=== PATIENT | male | born 1940 | race Two or more races ===

== ENCOUNTER 2018-05-09 14:13 | Inpatient (IN) | payer MEDICARE, BC ==
[2018-05-09] MEDS ORDERED: SODIUM CHLORIDE 0.9% 500 ML IV STA (14:43)
[2018-05-09 14:57] LABS: Basophils # (A) 0.1 k/uL (0-0.2); Basophils % (A) 1 %; Eosinophils # (A) 0.2 k/uL (0-0.7); Eosinophils % (A) 3 %; HCT 43.8 % (39.0-53.0); HGB 14.1 gm/dL (13.0-17.5); Lymphocytes # (A) 1.9 k/uL (1.0-4.8); Lymphocytes % (A) 26 %; MCH 30.9 pg (25.0-35.0); MCHC 32.1 g/dL (31.0-37.0); MCV 96.2 fL (80.0-100.0); Mean Platelet Volume 8.2; Monocytes # (A) 0.5 k/uL (0-1.0); Monocytes % (A) 7 %; Neutrophils # (A) 4.7 k/uL (1.3-7.7); Neutrophils % (A) 62 %; Platelet Count 161 k/uL (150-450); RBC 4.55 m/uL (4.30-5.90); RDW 13.3 % (11.5-15.5); WBC 7.5 k/uL (3.8-10.6)
--- NOTE | 2018-05-09 14:58 | ED ---
General Adult HPI - General Chief complaint: GI Bleed Stated complaint: blood in stool Time Seen by Provider: 05/09/18 14:15 Source: patient, RN notes reviewed Mode of arrival: ambulatory Limitations: no limitations - History of Present Illness Initial comments: This is a 77 her old male who comes into the emergency department complaining that he has had bright red blood per rectum as well as some dark black stools. Patient states she's had 3 bowel movements 2 of which had bright red blood one of which had dark black stool. Patient states he has not had this in the past. Patient states he is on Plavix. Patient denies any abdominal pain. Patient denies any recent diarrhea. Patient denies any difficulty breathing shortness of breath or chest pain. Patient denies any lightheadedness or dizziness. - Related Data Home Medications Medication Instructions Recorded Confirmed Calcium/Magnesium 1 tab PO DAILY 05/09/18 05/09/18 Clopidogrel [Plavix] 75 mg PO DAILY 05/09/18 05/09/18 Enzalutamide [Xtandi] 120 mg PO DIRECTED MDD on hold 05/09/18 05/09/18 Furosemide [Lasix] 20 mg PO BID 05/09/18 05/09/18 Ibuprofen [Motrin Ib] 400 mg PO BID 05/09/18 05/09/18 Potassium 99 mg PO DAILY 05/09/18 05/09/18 Turmeric Root Extract [Turmeric] 500 mg PO DAILY 05/09/18 05/09/18 metFORMIN HCL [Glucophage] 1,000 mg PO BID 05/09/18 05/09/18 Allergies Allergy/AdvReac Type Severity Reaction Status Date / Time Iodinated Contrast- Oral and Allergy Rash/Hives Verified 05/09/18 15:05 IV Dye Review of Systems ROS Statement: Those systems with pertinent positive or pertinent negative responses have been documented in the HPI. ROS Other: All systems not noted in ROS Statement are negative. Past Medical History Past Medical History: Cancer, Chest Pain / Angina, Diabetes Mellitus, Prostate Disorder Additional Past Medical History / Comment(s): open heart surgery, valve repair surgery, prostate cancer History of Any Multi-Drug Resistant Organisms: None Reported Past Surgical History: Adenoidectomy, Appendectomy, Coronary Bypass/CABG, Tonsillectomy Additional Past Surgical History / Comment(s): aortic valve repair surgery Past Psychological History: No Psychological Hx Reported Smoking Status: Former smoker Past Alcohol Use History: None Reported Past Drug Use History: None Reported General Exam - General Exam Comments Initial Comments: GENERAL: Patient is well-developed and well-nourished. Patient is nontoxic and well- hydrated and is in no acute distress. ENT: Neck is soft and supple. No significant lymphadenopathy is noted. Oropharynx is clear. Moist mucous membranes. Neck has full range of motion without eliciting any pain. EYES: The sclera were anicteric and conjunctiva were pink and moist. Extraocular movements were intact and pupils were equal round and reactive to light. Eyelids were unremarkable. PULMONARY: Unlabored respirations. Good breath sounds bilaterally. No audible rales rhonchi or wheezing was noted. CARDIOVASCULAR: There is a regular rate and rhythm without any murmurs gallops or rubs. ABDOMEN: Soft and nontender with normal bowel sounds. No palpable organomegaly was noted. There is no palpable pulsatile mass. RECTAL Rectal exam showed no obvious site of bleeding. SKIN: Skin is clear with no lesions or rashes and otherwise unremarkable. NEUROLOGIC: Patient is alert and oriented x3. Cranial nerves II through XII are grossly intact. Motor and sensory are also intact. Normal speech, volume and content. Symmetrical smile. MUSCULOSKELETAL: Normal extremities with adequate strength and full range of motion. No lower extremity swelling or edema. No calf tenderness. LYMPHATICS: No significant lymphadenopathy is noted PSYCHIATRIC: Normal psychiatric evaluation. Normal interpersonal interactions appears functionally intact in deals appropriately with others. No signs of depression. No signs of anxiety. Limitations: no limitations Course Vital Signs 05/09/18 05/09/18 14:22 15:16 Temperature 97.8 F Pulse Rate 75 72 Respiratory 18 18 Rate Blood Pressure 135/70 127/60 O2 Sat by Pulse 95 96 Oximetry Medical Decision Making - Medical Decision Making EKG shows sinus rhythm with occasional PAC at 70 bpm IA interval is 154 QRS is 88 QT interval 352 QTC is 411. Patient's EKG shows some inverted T waves in the precordial leads V3 through V6 as well as inferior leads. No old EKG is available at this time. Patient is not having any chest pain or difficulty breathing I spoke with Dr. Martinez he agreed to admit the patient admitted the patient I wrote admitting orders. I consult to GI. I did CBCs every 6 hours. - Lab Data Result diagrams: 05/09/18 14:36 05/09/18 14:36 Lab Results 05/09/18 05/09/18 05/09/18 Range/Units 14:36 14:36 14:36 WBC 7.5 (3.8-10.6) k/uL RBC 4.55 (4.30-5.90) m/uL Hgb 14.1 (13.0-17.5) gm/dL Hct 43.8 (39.0-53.0) % MCV 96.2 (80.0-100.0) fL MCH 30.9 (25.0-35.0) pg MCHC 32.1 (31.0-37.0) g/dL RDW 13.3 (11.5-15.5) % Plt Count 161 (150-450) k/uL Neutrophils % 62 % Lymphocytes % 26 % Monocytes % 7 % Eosinophils % 3 % Basophils % 1 % Neutrophils # 4.7 (1.3-7.7) k/uL Lymphocytes # 1.9 (1.0-4.8) k/uL Monocytes # 0.5 (0-1.0) k/uL Eosinophils # 0.2 (0-0.7) k/uL Basophils # 0.1 (0-0.2) k/uL PT (9.0-12.0) sec INR (<1.2) APTT (22.0-30.0) sec Sodium 140 (137-145) mmol/L Potassium 4.3 (3.5-5.1) mmol/L Chloride 100 (98-107) mmol/L Carbon Dioxide 30 (22-30) mmol/L Anion Gap 10 mmol/L BUN 21 H (9-20) mg/dL Creatinine 0.66 (0.66-1.25) mg/dL Est GFR (CKD-EPI)AfAm >90 (>60 ml/min/1.73 sqM) Est GFR (CKD-EPI)NonAf >90 (>60 ml/min/1.73 sqM) Glucose 177 H (74-99) mg/dL Calcium 9.5 (8.4-10.2) mg/dL Magnesium 1.6 (1.6-2.3) mg/dL Total Bilirubin 0.6 (0.2-1.3) mg/dL AST 19 (17-59) U/L ALT 23 (21-72) U/L Alkaline Phosphatase 64 (38-126) U/L Total Creatine Kinase 32 L (55-170) U/L CK-MB (CK-2) 1.6 (0.0-2.4) ng/mL CK-MB (CK-2) Rel Index 5.0 Troponin I 0.013 (0.000-0.034) ng/mL Total Protein 6.9 (6.3-8.2) g/dL Albumin 3.9 (3.5-5.0) g/dL 05/09/18 Range/Units 14:36 WBC (3.8-10.6) k/uL RBC (4.30-5.90) m/uL Hgb (13.0-17.5) gm/dL Hct (39.0-53.0) % MCV (80.0-100.0) fL MCH (25.0-35.0) pg MCHC (31.0-37.0) g/dL RDW (11.5-15.5) % Plt Count (150-450) k/uL Neutrophils % % Lymphocytes % % Monocytes % % Eosinophils % % Basophils % % Neutrophils # (1.3-7.7) k/uL Lymphocytes # (1.0-4.8) k/uL Monocytes # (0-1.0) k/uL Eosinophils # (0-0.7) k/uL Basophils # (0-0.2) k/uL PT 10.3 (9.0-12.0) sec INR 1.1 (<1.2) APTT 23.4 (22.0-30.0) sec Sodium (137-145) mmol/L Potassium (3.5-5.1) mmol/L Chloride (98-107) mmol/L Carbon Dioxide (22-30) mmol/L Anion Gap mmol/L BUN (9-20) mg/dL Creatinine (0.66-1.25) mg/dL Est GFR (CKD-EPI)AfAm (>60 ml/min/1.73 sqM) Est GFR (CKD-EPI)NonAf (>60 ml/min/1.73 sqM) Glucose (74-99) mg/dL Calcium (8.4-10.2) mg/dL Magnesium (1.6-2.3) mg/dL Total Bilirubin (0.2-1.3) mg/dL AST (17-59) U/L ALT (21-72) U/L Alkaline Phosphatase (38-126) U/L Total Creatine Kinase (55-170) U/L CK-MB (CK-2) (0.0-2.4) ng/mL CK-MB (CK-2) Rel Index Troponin I (0.000-0.034) ng/mL Total Protein (6.3-8.2) g/dL Albumin (3.5-5.0) g/dL Disposition Clinical Impression: Gastrointestinal hemorrhage Disposition: ADMITTED IP TO THIS HOSP Referrals: Kirk Gold MD [Primary Care Provider] - 1-2 days Time of Disposition: 15:45
[2018-05-09 15:11] LABS: INR 1.1 (<1.2); Partial Thromboplastin Time 23.4 sec (22.0-30.0); Prothrombin Time 10.3 sec (9.0-12.0)
[2018-05-09 15:13] LABS: ALT 23 U/L (21-72); AST 19 U/L (17-59); Albumin 3.9 g/dL (3.5-5.0); Alkaline Phosphatase 64 U/L (38-126); Anion Gap 10 mmol/L; Blood Urea Nitrogen 21 mg/dL (9-20); Calcium 9.5 mg/dL (8.4-10.2); Carbon Dioxide 30 mmol/L (22-30); Chloride 100 mmol/L (98-107); Glucose 177 mg/dL (74-99); Magnesium 1.6 mg/dL (1.6-2.3); Potassium 4.3 mmol/L (3.5-5.1); Sodium 140 mmol/L (137-145); Total Bilirubin 0.6 mg/dL (0.2-1.3); Total Protein 6.9 g/dL (6.3-8.2)
[2018-05-09 15:27] LABS: Creatine Kinase MB 1.6 ng/mL (0.0-2.4); Troponin I 0.013 ng/mL (0.000-0.034)
[2018-05-09] MEDS ORDERED: SODIUM CHLORIDE 0.9% 1,000 ML IV ONE (15:45)
[2018-05-09 17:01] VITALS: BMI 35.2
[2018-05-09 17:11] LABS: Glucose,Whole Blood 134 mg/dL (75-99)
[2018-05-09] MEDS: INSULIN ASPART 100 UNIT/ML 1 ML 10 ML VIAL SQ SCH ×2 (18:04→21:04)
[2018-05-09] MEDS: PANTOPRAZOLE 40 MG/10 ML VIAL IVP SCH (18:52)
[2018-05-09 20:55] LABS: Glucose,Whole Blood 109 mg/dL (75-99)
[2018-05-09] MEDS ORDERED: INSULIN DETEMIR 100 UNIT/ML 10 ML VIAL SQ SCH (21:00)
[2018-05-09 22:41] LABS: Basophils % (A) 1 %; Eosinophils # (A) 0.1 k/uL (0-0.7); Eosinophils % (A) 2 %; HCT 39.2 % (39.0-53.0); HGB 12.1 gm/dL (13.0-17.5); Hypochromasia Slight; Lymphocytes # (A) 1.5 k/uL (1.0-4.8); Lymphocytes % (A) 25 %; MCH 30.1 pg (25.0-35.0); MCHC 30.9 g/dL (31.0-37.0); MCV 97.3 fL (80.0-100.0); Mean Platelet Volume 8.1; Monocytes # (A) 0.5 k/uL (0-1.0); Monocytes % (A) 8 %; Neutrophils # (A) 3.6 k/uL (1.3-7.7); Neutrophils % (A) 62 %; Platelet Count 139 k/uL (150-450); RBC 4.03 m/uL (4.30-5.90); RDW 13.3 % (11.5-15.5); WBC 5.8 k/uL (3.8-10.6)
[2018-05-09] MEDS ORDERED: ALPRAZolam 0.25 MG TAB PO PRN (22:46)
[2018-05-09] MEDS ORDERED: HYDROcodone/APAP 5-325MG 1 EACH TAB PO PRN (22:46)
--- NOTE | 2018-05-09 23:29 | XR ---
EXAMINATION TYPE: XR chest 1V portable DATE OF EXAM: 05/09/2018 COMPARISON: NONE HISTORY: Chest pain. Short of breath. TECHNIQUE: Single frontal view of the chest is obtained. FINDINGS: There is slight coarsening of interstitial markings at the lung bases. There is no heart f ailure. There are sternal wires. Thoracic aorta is atheromatous. IMPRESSION: Mild basilar pulmonary infiltrates and atelectasis. No gross heart failure.
--- NOTE | 2018-05-09 23:42 | HP ---
HISTORY AND PHYSICAL CHIEF COMPLAINT: GI bleed. HISTORY OF PRESENT ILLNESS: This 77-year-old gentleman with a past medical history of chest pain, angina, diabetes, prostate disorder, history of CAD, CABG, history of rheumatic fever, being followed by Dr. Gold in [place], was complaining of GI bleed. Last night the patient woke up and saw fresh blood initially; subsequently black-colored stools in multiple bowel movements were noted. The patient came to [facility] and was admitted for further evaluation treatment. Abdominal There is no abdominal pain as such. The hemoglobin was found to be 14.1 and 12.1. Gastroenterology evaluation is in progress. There is no history of any fever, rigor or chills. No history of headache, loss of consciousness, seizures. PAST MEDICAL HISTORY: 1. History of chest pain. 2. History of diabetes mellitus. 3. History of prostate disorder. 4. History of CAD CABG. 5. History of aortic valve repair. MEDICATIONS PRIOR TO ADMISSION: These include: 1. Lantus 25 units subcutaneously b.i.d. 2. Glucophage 1000 mg b.i.d. 3. Turmeric 500 mg b.i.d. 4. Potassium 90 mg p.o. daily. 5. Motrin 400 mg p.o. b.i.d. 6. Lasix 20 mg b.i.d. 7. Xtandi 120 mg p.r.n. 8. Plavix 75 mg p.o. daily. 9. Calcium/magnesium 1 p.o. daily. ALLERGIES: IODINATED CONTRAST DYES. FAMILY HISTORY: History of CAD, diabetes mellitus in the family. SOCIAL HISTORY: Previous history of smoking. No history of alcohol intake. REVIEW OF SYSTEMS: ENT: No diminished hearing. No diminished vision. CARDIOVASCULAR SYSTEM: No angina, palpitations. Otherwise as mentioned earlier. RESPIRATORY SYSTEM: No cough, hemoptysis. GI: As mentioned earlier. : No dysuria or retention. NERVOUS SYSTEM: No numbness, weakness. ALLERGY/IMMUNOLOGY: No asthma, hayfever. MUSCULOSKELETAL: As mentioned earlier. HEMATOLOGY/ONCOLOGY: No history of anemia. ENDOCRINE: As mentioned earlier. CONSTITUTIONAL: As mentioned earlier. DERMATOLOGY: Negative. RHEUMATOLOGY: Negative. PSYCHIATRY: As mentioned earlier. PHYSICAL EXAMINATION: Patient is alert, oriented x3. Pulse is 69, blood pressure 117/55, respiration 18, temperature 97.9, pulse ox 98% on 2 L. HEENT: Conjunctivae normal. Oral mucosa moist. NECK: No jugular venous distention. No carotid bruit. No lymph node enlargement. CARDIOVASCULAR SYSTEM: S1, S2 muffled. RESPIRATORY SYSTEM: Breath sounds diminished at the bases. A few scattered rhonchi. No crackles. ABDOMEN: Soft, obese, nontender. No mass palpable. No guarding. No rigidity. LEGS: No edema. No swelling. NERVOUS SYSTEM: Higher functions as mentioned earlier. Moves all four limbs. No focal sensory or motor deficits LYMPHATICS: No lymph node palpable in neck, axillae or groin. SKIN: No ulcer, rash, bleeding. LABS: WBC 5.8, hemoglobin 12.1, glucose 109. ASSESSMENT: 1. Acute lower gastrointestinal bleeding with acute blood loss anemia. Rule out peptic ulcer disease. 2. History of coronary artery disease, coronary artery bypass grafting. 3. Diabetes mellitus, type 2. 4. History of aortic valve repair x2. 5. Remote history of nicotine dependence. 6. Obesity with body mass index of 35.3. RECOMMENDATIONS AND DISCUSSION: In this 77-year-old gentleman who presented with multiple complex medical issues , we will monitor the patient closely, continue the current medications, continue with symptomatic treatment. Otherwise at this time I recommend continuing with current medications. Continue with proton pump inhibitors. Hold antiplatelet agents. Gastroenterology consultation. Possible endoscopies. The prognosis is guarded because of the multiple complex medical issues. Further recommendations to follow. A copy of this dictation is being forwarded to Dr. Gold in [place]. See orders for further details. Discussed with staff. Discussed with the patient. Further recommendations to follow. Keep the patient n.p.o. currently. MMODL / IJN: [id number] / MARYJANE
[2018-05-10 00:32] LABS: Glucose,Whole Blood 115 mg/dL (75-99)
[2018-05-10 04:52] LABS: Basophils % (A) 1 %; Eosinophils # (A) 0.1 k/uL (0-0.7); Eosinophils % (A) 3 %; HCT 36.4 % (39.0-53.0); HGB 11.5 gm/dL (13.0-17.5); Hypochromasia Slight; Lymphocytes # (A) 1.3 k/uL (1.0-4.8); Lymphocytes % (A) 24 %; MCHC 31.7 g/dL (31.0-37.0); MCV 97.9 fL (80.0-100.0); Mean Platelet Volume 7.9; Monocytes # (A) 0.5 k/uL (0-1.0); Monocytes % (A) 8 %; Neutrophils # (A) 3.5 k/uL (1.3-7.7); Neutrophils % (A) 64 %; Platelet Count 139 k/uL (150-450); RBC 3.72 m/uL (4.30-5.90); RDW 13.2 % (11.5-15.5); WBC 5.5 k/uL (3.8-10.6)
[2018-05-10 05:06] LABS: Anion Gap 3 mmol/L; Blood Urea Nitrogen 21 mg/dL (9-20); Calcium 8.8 mg/dL (8.4-10.2); Carbon Dioxide 30 mmol/L (22-30); Chloride 104 mmol/L (98-107); Glucose 124 mg/dL (74-99); Magnesium 1.7 mg/dL (1.6-2.3); Potassium 3.8 mmol/L (3.5-5.1); Sodium 137 mmol/L (137-145)
[2018-05-10 05:10] LABS: INR 1.1 (<1.2); Partial Thromboplastin Time 23.1 sec (22.0-30.0); Prothrombin Time 10.4 sec (9.0-12.0)
[2018-05-10] MEDS ORDERED: Potassium Replacement Protocol 1 EACH MISC MISCELLANE PRN (05:39)
[2018-05-10] MEDS ORDERED: POTASSIUM CHLORIDE ER 20 MEQ TAB.ER PO SCH (06:00)
[2018-05-10] MEDS: MAGNESIUM SULFATE-D5W PMX 1 GM in DEXTROSE/WATER 1 100ML.BAG IVPB SCH ×2 (06:10→07:10)
[2018-05-10 07:25] LABS: Glucose,Whole Blood 156 mg/dL (75-99)
--- NOTE | 2018-05-10 07:50 | P.CRDCN ---
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 In 2016, he underwent transcutaneous aortic valve replacement "TAVR". Beside that the patient does have obstructive sleep apnea, he is obese, hypertension, dyslipidemia and he is diabetic as well. He was in his usual state of health till yesterday when he started experiencing blood in the stool. Initially it was bright red blood but subsequently he did have small bowel movement with black stool. In the hospital, he did have one more episode of blood in the stool as well. The initial hemoglobin when he presented to the hospital was 14.1 but the last hemoglobin dropped to 11.5. Clinically, the patient denies having any chest pain or chest discomfort, shortness of breath, dizziness or lightheadedness, feeling of heart racing or fluttering, or syncope. He denies having any abdominal discomfort, nausea or vomiting. The EKG showed sinus rhythm with nonspecific changes. There is also premature atrial contraction. The chest x-ray did not show any acute abnormalities. The patient was receiving Plavix and the Plavix is on hold at this point. I would agree with that since the patient did not have any recent percutaneous coronary intervention or stenting within the last 12 months. The patient is in process to be seen by the GI service. Past Medical History Past Medical History: Cancer, Chest Pain / Angina, Diabetes Mellitus, Prostate Disorder Additional Past Medical History / Comment(s): open heart surgery, valve repair surgery, prostate cancer, rheumatic fever History of Any Multi-Drug Resistant Organisms: None Reported Past Surgical History: Adenoidectomy, Appendectomy, Coronary Bypass/CABG, Tonsillectomy Additional Past Surgical History / Comment(s): aortic valve repair surgery x2 Past Anesthesia/Blood Transfusion Reactions: No Reported Reaction Past Psychological History: No Psychological Hx Reported Smoking Status: Former smoker Past Alcohol Use History: None Reported Past Drug Use History: None Reported - Past Family History Mother Family Medical History: Coronary Artery Disease (CAD), Diabetes Mellitus Medications and Allergies Home Medications Medication Instructions Recorded Confirmed Type Calcium/Magnesium 1 tab PO DAILY 05/09/18 05/09/18 History Clopidogrel [Plavix] 75 mg PO DAILY 05/09/18 05/09/18 History Enzalutamide [Xtandi] 120 mg PO DIRECTED MDD on hold 05/09/18 05/09/18 History Furosemide [Lasix] 20 mg PO BID 05/09/18 05/09/18 History Ibuprofen [Motrin Ib] 400 mg PO BID 05/09/18 05/09/18 History Insulin Glargine [Lantus] 25 unit SQ BID 05/09/18 05/09/18 History Potassium 99 mg PO DAILY 05/09/18 05/09/18 History Turmeric Root Extract [Turmeric] 500 mg PO DAILY 05/09/18 05/09/18 History metFORMIN HCL [Glucophage] 1,000 mg PO BID 05/09/18 05/09/18 History Allergies Allergy/AdvReac Type Severity Reaction Status Date / Time Iodinated Contrast- Oral and Allergy Rash/Hives Verified 05/09/18 15:05 IV Dye Physical Exam Vitals: Vital Signs Temp Pulse Pulse Resp BP BP Pulse Ox 05/10/18 07:00 72 17 115/64 97 05/10/18 06:00 86 28 H 129/61 98 05/10/18 05:00 73 16 124/62 97 05/10/18 04:00 98.0 F 76 15 147/58 97 05/10/18 03:30 77 16 128/60 97 05/10/18 03:00 68 10 L 108/55 98 05/10/18 02:30 73 18 125/62 99 05/10/18 02:00 74 10 L 100/55 97 05/10/18 01:30 69 12 109/64 92 L 05/10/18 01:00 98.5 F 74 23 119/66 93 L 05/10/18 00:36 71 10 L 135/72 96 05/09/18 23:00 97.1 F L 67 16 114/58 96 05/09/18 17:00 97.4 F L 72 16 140/78 96 05/09/18 16:36 97.9 F 69 18 117/55 98 05/09/18 15:16 72 18 127/60 96 05/09/18 14:22 97.8 F 75 18 135/70 95 Intake and Output 05/09/18 05/10/18 05/10/18 22:59 06:59 14:59 Intake Total 400 75 Output Total 400 Balance 0 75 Intake: IV 400 75 Magnesium Sulfate-D5w Pmx 100 1 gm In Dextrose/Water 1 100ml.bag @ 100 mls/hr IVPB Q1H [facility] Rx#: [id number] Sodium Chloride 0.9% 1, 300 75 000 ml @ 75 mls/hr IV . [id number] ONE Rx#:[id number] Output: Urine 400 Other: # Voids 1 1 0 # Bowel Movements 1 Weight 117.934 kg - Constitutional General appearance: no acute distress - Respiratory Respiratory: bilateral: CTA - Cardiovascular Rhythm: regular Heart sounds: normal: S1, S2 Abnormal Heart Sounds: systolic murmur Results 05/10/18 04:15 05/10/18 04:15 Cardiac Enzymes 05/09/18 05/09/18 Range/Units 14:36 14:36 AST 19 (17-59) U/L CK-MB (CK-2) 1.6 (0.0-2.4) ng/mL Troponin I 0.013 (0.000-0.034) ng/mL Coagulation 05/09/18 05/10/18 Range/Units 14:36 04:15 PT 10.3 10.4 (9.0-12.0) sec APTT 23.4 23.1 (22.0-30.0) sec CBC 05/09/18 05/09/18 05/10/18 Range/Units 14:36 21:59 04:15 WBC 7.5 5.8 5.5 (3.8-10.6) k/uL RBC 4.55 4.03 L 3.72 L (4.30-5.90) m/uL Hgb 14.1 12.1 L 11.5 L (13.0-17.5) gm/dL Hct 43.8 39.2 36.4 L (39.0-53.0) % Plt Count 161 139 L 139 L (150-450) k/uL Comprehensive Metabolic Panel 05/09/18 05/10/18 Range/Units 14:36 04:15 Sodium 140 137 (137-145) mmol/L Potassium 4.3 3.8 (3.5-5.1) mmol/L Chloride 100 104 (98-107) mmol/L Carbon Dioxide 30 30 (22-30) mmol/L BUN 21 H 21 H (9-20) mg/dL Creatinine 0.66 0.60 L (0.66-1.25) mg/dL Glucose 177 H 124 H (74-99) mg/dL Calcium 9.5 8.8 (8.4-10.2) mg/dL AST 19 (17-59) U/L ALT 23 (21-72) U/L Alkaline Phosphatase 64 (38-126) U/L Total Protein 6.9 (6.3-8.2) g/dL Albumin 3.9 (3.5-5.0) g/dL Current Medications Generic Name Dose Route Start Last Admin Trade Name Freq PRN Reason Stop Dose Admin Acetaminophen 500 mg 05/09/18 22:46 Tylenol Tab PO Q6HR PRN Fever and/ or Pain Hydrocodone Bitart/Acetaminophen 1 each 05/09/18 22:46 [place] 5-325 PO Q6HR PRN Pain Alprazolam 0.25 mg 05/09/18 22:46 Xanax PO TID PRN Anxiety Furosemide 20 mg 05/10/18 09:00 Lasix PO BID [facility] Insulin Aspart 0 unit 05/09/18 17:30 05/09/18 21:04 Novolog SQ Not Given ACHS [facility] Protocol Melatonin 3 mg 05/10/18 21:00 Melatonin PO HS [facility] Miscellaneous Information 1 each 05/10/18 05:39 Potassium Per Protocol MISCELLANE DAILY PRN Per Protocol Protocol Pantoprazole Sodium 40 mg 05/09/18 18:00 05/09/18 18:52 Protonix IVP 40 mg DAILY [facility] Administration Intake and Output 05/09/18 05/10/18 05/10/18 22:59 06:59 14:59 Intake Total 400 75 Output Total 400 Balance 0 75 Intake: IV 400 75 Magnesium Sulfate-D5w Pmx 100 1 gm In Dextrose/Water 1 100ml.bag @ 100 mls/hr IVPB Q1H [facility] Rx#: [id number] Sodium Chloride 0.9% 1, 300 75 000 ml @ 75 mls/hr IV . [id number] ONE Rx#:[id number] Output: Urine 400 Other: # Voids 1 1 0 # Bowel Movements 1 Weight 117.934 kg 05/10/18 04:15 05/10/18 04:15 Assessment and Plan Assessment: Assessment #1 GI bleeding. #2 anemia secondary to the above #3 coronary artery disease seems to be stable #4 valvular heart disease as described above. #5 multiple comorbid conditions including, diabetes, obesity, and obstructive sleep apnea. Plan #1 I agree about holding Plavix at this point. #2 we'll await for the GI input. #3 continue monitor the hemoglobin #4 obtain an echocardiogram was Doppler #5 follow-up with the patient. Thank you for allowing us participate in his care
[2018-05-10] MEDS: FUROSEMIDE 20 MG TAB PO SCH ×2 (08:53→20:18)
[2018-05-10] MEDS: INSULIN ASPART 100 UNIT/ML 1 ML 10 ML VIAL SQ SCH ×4 (08:53→20:11)
[2018-05-10] MEDS: PANTOPRAZOLE 40 MG/10 ML VIAL IVP SCH (08:53)
[2018-05-10] MEDS ORDERED: NON-FORMULARY DRUG (Potassium [Potassium] 99 MG) PO SCH (09:00)
[2018-05-10] MEDS: SODIUM CHLORIDE 0.9% 1,000 ML IV SCH (11:17)
[2018-05-10 11:52] LABS: Glucose,Whole Blood 170 mg/dL (75-99)
--- NOTE | 2018-05-10 12:28 | ECHOF ---
Referral Reason:AVR MEASUREMENTS -------- HEIGHT: 177.8 cm WEIGHT: 117.9 kg BP: IVSd: 0.9 cm (0.6 - 1.1) LVIDd: 4.7 cm (3.9 - 5.3) LVPWd: 1.2 cm (0.6 - 1.1) IVSs: 1.9 cm LVIDs: 3.7 cm LVPWs: 1.3 cm MV EXCURSION: 10.304 mm (> 18.000) MV EF SLOPE: 20 mm/s (70 - 150) EPSS: 2.0 cm MV E Julio Cesar: 1.98 m/s MV DecT: 612 ms MV A Julio Cesar: 2.01 m/s MV E/A Ratio: 0.98 AV maxP.29 mmHg AV meanP.52 mmHg RAP: 5.00 mmHg RVSP: 10.41 mmHg FINDINGS -------- Sinus rhythm. This was a technically difficult study with suboptimal views. The left ventricular size is normal. Left ventricular wall thickness is normal. Overall left vent ricular systolic function is normal with, an EF between 55 - 60 %. The RV was not well visualized. The left atrium is normal in size. The right atrium was not well visualized. Lumason used The aortic valve was not well visualized. Peak/mean gradient across the Aortic Valve is 18.29mmHg / 9.52mmHg. TAVR procedure done Moderate mitral annular calcification present. Mild mitral regurgitation is present. The peak an d mean MV gradients are 18.79mmHg 10.89mmHg as measured by doppler. Moderate mitral stenosis. Mild tricuspid regurgitation present. There is no evidence of pulmonary hypertension. The pulmonic valve was not well visualized. The aortic root size is normal. There is no pericardial effusion. CONCLUSIONS -------- 1. Sinus rhythm. 2. This was a technically difficult study with suboptimal views. 3. The left ventricular size is normal. 4. Left ventricular wall thickness is normal. 5. Overall left ventricular systolic function is normal with, an EF between 55 - 60 %. 6. The RV was not well visualized. 7. The left atrium is normal in size. 8. The right atrium was not well visualized. 9. Lumason used 10. The aortic valve was not well visualized. 11. Peak/mean gradient across the Aortic Valve is 18.29mmHg / 9.52mmHg. 12. TAVR procedure done 13. Moderate mitral annular calcification present. 14. Mild mitral regurgitation is present. 15. The peak and mean MV gradients are 18.79mmHg 10.89mmHg as measured by doppler. 16. Moderate mitral stenosis. 17. Mild tricuspid regurgitation present. 18. There is no evidence of pulmonary hypertension. 19. The pulmonic valve was not well visualized. 20. The aortic root size is normal. 21. There is no pericardial effusion. LABORATORY MONITOR: Ruth Madison RDCS
--- NOTE | 2018-05-10 12:54 | P.CONS ---
History of Present Illness - Reason for Consult Consult date: 05/10/18 Bright red blood per rectum Requesting physician: Mayuri Martinez - Chief Complaint Rectal bleeding - History of Present Illness The patient is a 77-year-old male with a known history of coronary artery disease status post CABG on Plavix therapy presents with complaints of bright red blood per rectum. The patient reports that the bleeding started on Monday and reports episodes of painless bright red blood per rectum. The patient denies any prior episodes and reports at baseline having 2 bowel movements daily. He denies any melena or any nausea or vomiting associated with the episode. The patient reports trying to lose to the bathroom twice today but only passing gas with no further blood per rectum seen. He reports being on Plavix since 2016 after his last cardiac surgery. He denies any travel, sick contacts, or new medications. He has not had any endoscopic evaluation in the past. He has no family history of colon cancer. His hemoglobin on presentation was 14.1 and subsequently fell to 11.5. The patient had no leukocytosis, normal liver enzyme tests and no elevation of his BUNs suggest an upper GI bleed. He does take Motrin or Aleve daily to help him sleep. Endoscopic history: None reported as mentioned above. Review of Systems REVIEW OF SYSTEMS: CARDIOPULMONARY: No chest pain or shortness of breath, but the patient does have a significant history of coronary artery disease. GENITOURINARY: No dysuria or hematuria. MUSCULOSKELETAL: No weakness reported. SKIN: Denies any new rashes or lesions. PSYCHIATRIC: Denies any depression or anxiety at this time. NEUROLOGY: Denies headache, denies any new focal deficits. EARS: No tinnitus or new hearing loss. NOSE: No discharge. EYES: No pain in eyes or change in vision. CONSTITUTIONAL: No recent weight loss. No fever, chills, night sweats. Past Medical History Past Medical History: Cancer, Chest Pain / Angina, Diabetes Mellitus, Prostate Disorder Additional Past Medical History / Comment(s): open heart surgery, valve repair surgery, prostate cancer, rheumatic fever History of Any Multi-Drug Resistant Organisms: None Reported Past Surgical History: Adenoidectomy, Appendectomy, Coronary Bypass/CABG, Tonsillectomy Additional Past Surgical History / Comment(s): aortic valve repair surgery x2 Past Anesthesia/Blood Transfusion Reactions: No Reported Reaction Past Psychological History: No Psychological Hx Reported Smoking Status: Former smoker Past Alcohol Use History: None Reported Past Drug Use History: None Reported - Past Family History Mother Family Medical History: Coronary Artery Disease (CAD), Diabetes Mellitus Medications and Allergies Home Medications Medication Instructions Recorded Confirmed Type Calcium/Magnesium 1 tab PO DAILY 05/09/18 05/09/18 History Clopidogrel [Plavix] 75 mg PO DAILY 05/09/18 05/09/18 History Enzalutamide [Xtandi] 120 mg PO DIRECTED MDD on hold 05/09/18 05/09/18 History Furosemide [Lasix] 20 mg PO BID 05/09/18 05/09/18 History Ibuprofen [Motrin Ib] 400 mg PO BID 05/09/18 05/09/18 History Insulin Glargine [Lantus] 25 unit SQ BID 05/09/18 05/09/18 History Potassium 99 mg PO DAILY 05/09/18 05/09/18 History Turmeric Root Extract [Turmeric] 500 mg PO DAILY 05/09/18 05/09/18 History metFORMIN HCL [Glucophage] 1,000 mg PO BID 05/09/18 05/09/18 History Allergies Allergy/AdvReac Type Severity Reaction Status Date / Time Iodinated Contrast- Oral and Allergy Rash/Hives Verified 05/09/18 15:05 IV Dye Physical Exam Vitals: Vital Signs Temp Pulse Pulse Resp BP BP Pulse Ox 05/10/18 12:00 97.5 F L 69 18 104/56 92 L 05/10/18 11:00 82 28 H 105/57 05/10/18 10:00 78 28 H 100/55 92 L 05/10/18 09:00 71 17 05/10/18 08:00 97.6 F 73 27 H 102/53 05/10/18 07:00 72 17 115/64 97 05/10/18 06:00 86 28 H 129/61 98 05/10/18 05:00 73 16 124/62 97 05/10/18 04:00 98.0 F 76 15 147/58 97 05/10/18 03:30 77 16 128/60 97 05/10/18 03:00 68 10 L 108/55 98 05/10/18 02:30 73 18 125/62 99 05/10/18 02:00 74 10 L 100/55 97 05/10/18 01:30 69 12 109/64 92 L 05/10/18 01:00 98.5 F 74 23 119/66 93 L 05/10/18 00:36 71 10 L 135/72 96 05/09/18 23:00 97.1 F L 67 16 114/58 96 05/09/18 17:00 97.4 F L 72 16 140/78 96 05/09/18 16:36 97.9 F 69 18 117/55 98 05/09/18 15:16 72 18 127/60 96 05/09/18 14:22 97.8 F 75 18 135/70 95 Intake and Output 05/09/18 05/10/18 05/10/18 22:59 06:59 14:59 Intake Total 400 375 Output Total 400 640 Balance 0 -265 Intake: IV 400 375 Magnesium Sulfate-D5w Pmx 100 1 gm In Dextrose/Water 1 100ml.bag @ 100 mls/hr IVPB Q1H [facility] Rx#: [id number] Sodium Chloride 0.9% 1, 300 375 000 ml @ 75 mls/hr IV . [id number] ONE Rx#:[id number] Output: Urine 400 640 Other: Voiding Method Toilet # Voids 1 1 0 # Bowel Movements 1 Weight 117.934 kg On physical examination, patient appears comfortable in no apparent distress. HEENT: Unremarkable. Conjunctivae pink. Sclerae anicteric.No conjunctival injection. Oral cavity no lesions. NECK: Trachea midline, no gross abnormalities. CHEST: Clear to auscultation. HEART: Regular rate and rhythm. ABDOMEN: Soft, obese. Bowel sounds are positive. No organomegaly. EXTREMITIES: No pedal edema. SKIN: No rashes. NEUROLOGIC: Alert and oriented x3. No focal deficits. Results CBC & Chem 7: 05/10/18 04:15 05/10/18 04:15 Labs: Abnormal Lab Results - Last 24 Hours (Table) 05/09/18 05/09/18 05/09/18 Range/Units 14:36 14:36 16:56 RBC (4.30-5.90) m/uL Hgb (13.0-17.5) gm/dL Hct (39.0-53.0) % MCHC (31.0-37.0) g/dL Plt Count (150-450) k/uL BUN 21 H (9-20) mg/dL Creatinine (0.66-1.25) mg/dL Glucose 177 H (74-99) mg/dL POC Glucose (mg/dL) 134 H (75-99) mg/dL Total Creatine Kinase 32 L (55-170) U/L 05/09/18 05/09/18 05/10/18 Range/Units 20:53 21:59 00:30 RBC 4.03 L (4.30-5.90) m/uL Hgb 12.1 L (13.0-17.5) gm/dL Hct (39.0-53.0) % MCHC 30.9 L (31.0-37.0) g/dL Plt Count 139 L (150-450) k/uL BUN (9-20) mg/dL Creatinine (0.66-1.25) mg/dL Glucose (74-99) mg/dL POC Glucose (mg/dL) 109 H 115 H (75-99) mg/dL Total Creatine Kinase (55-170) U/L 05/10/18 05/10/18 05/10/18 Range/Units 04:15 04:15 07:23 RBC 3.72 L (4.30-5.90) m/uL Hgb 11.5 L (13.0-17.5) gm/dL Hct 36.4 L (39.0-53.0) % MCHC (31.0-37.0) g/dL Plt Count 139 L (150-450) k/uL BUN 21 H (9-20) mg/dL Creatinine 0.60 L (0.66-1.25) mg/dL Glucose 124 H (74-99) mg/dL POC Glucose (mg/dL) 156 H (75-99) mg/dL Total Creatine Kinase (55-170) U/L 05/10/18 Range/Units 11:49 RBC (4.30-5.90) m/uL Hgb (13.0-17.5) gm/dL Hct (39.0-53.0) % MCHC (31.0-37.0) g/dL Plt Count (150-450) k/uL BUN (9-20) mg/dL Creatinine (0.66-1.25) mg/dL Glucose (74-99) mg/dL POC Glucose (mg/dL) 170 H (75-99) mg/dL Total Creatine Kinase (55-170) U/L Assessment and Plan (1) Gastrointestinal hemorrhage Narrative/Plan: Presentation of painless bright red blood per rectum, highly suspicious of diverticular bleed. Currently no further blood reported. No hypotension, or significant elevation of the BUN to creatinine ratio to suggest suggest an upper GI bleed. Other possibilities include ischemia given significant history of coronary artery disease, although this is less likely given the absence of pain, bleeding from a stercoral ulcer in a patient with a history of intermittent constipation, malignancy or other etiology. Current Visit: Yes Status: Acute Code(s): K92.2 - GASTROINTESTINAL HEMORRHAGE, UNSPECIFIED SNOMED Code(s): 28330946 (2) Anemia due to blood loss, acute Narrative/Plan: Drop in patient's hemoglobin to 11.5 from 14.1 on admission. He denies any further bleeding at this time. Current Visit: Yes Status: Acute Code(s): D62 - ACUTE POSTHEMORRHAGIC ANEMIA SNOMED Code(s): 428636343 Plan: Supportive care Appreciate ICU management Continue to monitor hemoglobin and hematocrit and transfuse as needed Okay to hold Plavix per cardiology given remote history of cardiac intervention , when hemoglobin stabilizes and patient is clinically stable we will restart Okay for clear liquid diet tonight if no further bleeding No plans for endoscopic evaluation at this time, however the patient will need a colonoscopy as an outpatient in 4 weeks If further bleeding occurs consider tagged RBC scan versus endoscopic intervention Thank you for allowing us to participate in the care of this patient we will continue to follow
[2018-05-10 13:44] LABS: HCT 39.1 % (39.0-53.0); HGB 12.3 gm/dL (13.0-17.5); Hypochromasia Moderate; MCHC 31.4 g/dL (31.0-37.0); MCV 98.8 fL (80.0-100.0); Mean Platelet Volume 8.1; Platelet Count 142 k/uL (150-450); RBC 3.96 m/uL (4.30-5.90); RDW 13.4 % (11.5-15.5); WBC 6.3 k/uL (3.8-10.6)
[2018-05-10 16:18] LABS: Glucose,Whole Blood 186 mg/dL (75-99)
--- NOTE | 2018-05-10 16:33 | P.CNPUL ---
History of Present Illness Consult date: 05/10/18 History of present illness: This 77-year-old male patient has been taken Motrin for headache and he is also been an Plavix for his previous history of cardiac disease and the patient has undergone previous bypass surgery and previous aortic valve replacement, transcutaneous, TAVR. He has never had any previous colonoscopy or EGD. He comes into the hospital because of episodes of bright red blood and he can recall 3 of these episodes. He apparently was having some tarry stools earlier which may be potentially melanotic. No hematemesis. No nausea or vomiting. No abdominal pain. No diarrhea. No coagulopathy. No alcoholism. His hemoglobin has dropped from 14.1 down to 11.5. He remains hemodynamic is stable. Liver function tests are within normal limits. No previous history of gastric disease or ulcer. No reflux. Review of Systems Constitutional: Reports fatigue Eyes: denies blurred vision, denies bulging eye, denies decreased vision Ears: deny: decreased hearing, ear discharge, earache, tinnitus Ears, nose, mouth and throat: Denies headache, Denies sore throat Cardiovascular: Denies chest pain, Denies shortness of breath Respiratory: Denies cough Gastrointestinal: Reports BRBPR, Reports melena Genitourinary: Reports as per HPI Musculoskeletal: Denies myalgias Musculoskeletal: absent: ankle pain, ankle stiffness, ankle swelling Integumentary: Denies pruritus, Denies rash Neurological: Denies numbness, Denies weakness Psychiatric: Reports as per HPI Endocrine: Reports as per HPI Allergic/Immunologic: Reports as per HPI Past Medical History Past Medical History: Cancer, Chest Pain / Angina, Diabetes Mellitus, Prostate Disorder Additional Past Medical History / Comment(s): Coronary artery disease with previous bypass surgery, aortic valve replacement (TAVR) him a prostate cancer, rheumatic fever, diabetes mellitus History of Any Multi-Drug Resistant Organisms: None Reported Past Surgical History: Adenoidectomy, Appendectomy, Coronary Bypass/CABG, Tonsillectomy Additional Past Surgical History / Comment(s): aortic valve repair surgery x2 Past Anesthesia/Blood Transfusion Reactions: No Reported Reaction Past Psychological History: No Psychological Hx Reported Smoking Status: Former smoker Past Alcohol Use History: None Reported Past Drug Use History: None Reported - Past Family History Mother Family Medical History: Coronary Artery Disease (CAD), Diabetes Mellitus Medications and Allergies Home Medications Medication Instructions Recorded Confirmed Type Calcium/Magnesium 1 tab PO DAILY 05/09/18 05/09/18 History Clopidogrel [Plavix] 75 mg PO DAILY 05/09/18 05/09/18 History Enzalutamide [Xtandi] 120 mg PO DIRECTED MDD on hold 05/09/18 05/09/18 History Furosemide [Lasix] 20 mg PO BID 05/09/18 05/09/18 History Ibuprofen [Motrin Ib] 400 mg PO BID 05/09/18 05/09/18 History Insulin Glargine [Lantus] 25 unit SQ BID 05/09/18 05/09/18 History Potassium 99 mg PO DAILY 05/09/18 05/09/18 History Turmeric Root Extract [Turmeric] 500 mg PO DAILY 05/09/18 05/09/18 History metFORMIN HCL [Glucophage] 1,000 mg PO BID 05/09/18 05/09/18 History Allergies Allergy/AdvReac Type Severity Reaction Status Date / Time Iodinated Contrast- Oral and Allergy Rash/Hives Verified 05/09/18 15:05 IV Dye Physical Exam Vitals: Vital Signs Temp Pulse Pulse Pulse Resp BP BP 05/10/18 13:30 97.3 F L 71 20 129/75 05/10/18 12:00 97.5 F L 69 18 104/56 05/10/18 11:00 82 28 H 105/57 05/10/18 10:00 78 28 H 100/55 05/10/18 09:00 71 17 05/10/18 08:00 97.6 F 73 27 H 102/53 05/10/18 07:00 72 17 115/64 05/10/18 06:00 86 28 H 129/61 05/10/18 05:00 73 16 124/62 05/10/18 04:00 98.0 F 76 15 147/58 05/10/18 03:30 77 16 128/60 05/10/18 03:00 68 10 L 108/55 05/10/18 02:30 73 18 125/62 05/10/18 02:00 74 10 L 100/55 05/10/18 01:30 69 12 109/64 05/10/18 01:00 98.5 F 74 23 119/66 05/10/18 00:36 71 10 L 135/72 05/09/18 23:00 97.1 F L 67 16 114/58 05/09/18 17:00 97.4 F L 72 16 140/78 05/09/18 16:36 97.9 F 69 18 117/55 Pulse Ox 05/10/18 13:30 98 05/10/18 12:00 92 L 05/10/18 11:00 05/10/18 10:00 92 L 05/10/18 09:00 05/10/18 08:00 05/10/18 07:00 97 05/10/18 06:00 98 05/10/18 05:00 97 05/10/18 04:00 97 05/10/18 03:30 97 05/10/18 03:00 98 05/10/18 02:30 99 05/10/18 02:00 97 05/10/18 01:30 92 L 05/10/18 01:00 93 L 05/10/18 00:36 96 05/09/18 23:00 96 05/09/18 17:00 96 05/09/18 16:36 98 Intake and Output 05/10/18 05/10/18 05/10/18 06:59 14:59 22:59 Intake Total 400 375 Output Total 400 640 Balance 0 -265 Intake: IV 400 375 Magnesium Sulfate-D5w Pmx 100 1 gm In Dextrose/Water 1 100ml.bag @ 100 mls/hr IVPB Q1H [facility] Rx#: [id number] Sodium Chloride 0.9% 1, 300 375 000 ml @ 75 mls/hr IV . [id number] ONE Rx#:[id number] Output: Urine 400 640 Other: Voiding Method Toilet # Voids 1 0 Gen. appearance, comfortable likely distress Head exam was generally normal. There was no scleral icterus or corneal arcus. Mucous membranes were moist. Neck was supple and without jugular venous distension, thyromegaly, or carotid bruits. Carotids were easily palpable bilaterally. There was no adenopathy. Lungs were clear to auscultation and percussion, and with normal diaphragmatic excursion. No wheezes or rales were noted. Heart sounds are regular the patient has a stable sternum. No significant murmurs appreciated. Abdominal exam revealed normal bowel sounds. The abdomen was soft, non-tender, and without masses, organomegaly, or appreciable enlargement of the abdominal aorta. Examination of the extremities revealed easily palpable radial, femoral and pedal pulses. There was no cyanosis, clubbing or edema. Examination of the skin revealed no evidence of significant rashes, suspicious appearing nevi or other concerning lesions. Neurologic the patient is awake and alert there is no focal neurological deficit Results - Laboratory Findings CBC and BMP: 05/10/18 13:31 05/10/18 04:15 PT/INR, D-dimer PT 10.4 sec (9.0-12.0) 05/10/18 04:15 INR 1.1 (<1.2) 05/10/18 04:15 Abnormal lab findings: Abnormal Labs 05/09/18 05/09/18 05/09/18 14:36 14:36 16:56 RBC Hgb Hct MCHC Plt Count BUN 21 H Creatinine Glucose 177 H POC Glucose (mg/dL) 134 H Total Creatine Kinase 32 L 05/09/18 05/09/18 05/10/18 20:53 21:59 00:30 RBC 4.03 L Hgb 12.1 L Hct MCHC 30.9 L Plt Count 139 L BUN Creatinine Glucose POC Glucose (mg/dL) 109 H 115 H Total Creatine Kinase 05/10/18 05/10/18 05/10/18 04:15 04:15 07:23 RBC 3.72 L Hgb 11.5 L Hct 36.4 L MCHC Plt Count 139 L BUN 21 H Creatinine 0.60 L Glucose 124 H POC Glucose (mg/dL) 156 H Total Creatine Kinase 05/10/18 05/10/18 05/10/18 11:49 13:31 16:17 RBC 3.96 L Hgb 12.3 L Hct MCHC Plt Count 142 L BUN Creatinine Glucose POC Glucose (mg/dL) 170 H 186 H Total Creatine Kinase Assessment and Plan Plan: Assessment 1 acute GI bleeding the exact source is not clear to me at this point in time. Although there is a suspicion for diverticular bleed, the patient is reporting also dark melanotic stool and the upper source of GI bleed cannot be completely excluded 2 anemia mild, secondary to GI related blood loss and ecchymosis hemoglobin is 11.5 and the patient is hemodynamically stable 3 coronary artery disease 4 aortic valve replacement 5 obesity with a BMI of 35.3 6 diabetes mellitus 7 obstructive sleep apnea 8 prostate cancer 9 remote history of rheumatic fever Plan Patient is stable. Patient is hemodynamically stable and hemoglobin remains above 10. Monitor hemoglobin level. Watch for any further signs of GI bleed. Stop nonsteroidal anti-inflammatory medication. Stop Plavix. We'll likely need an EGD and a colonoscopy at the same time to localize site of bleed. GI is on consult. Continue IV Protonix. Transfer this patient outside the intensive care unit for now.
--- NOTE | 2018-05-10 17:34 | PN ---
PROGRESS NOTE DATE OF SERVICE: 05/10/2018 This 77-year-old gentleman who was admitted with acute GI bleed, had multiple episodes of lower gastrointestinal bleed last night. The patient had acute blood loss anemia as well. Hemoglobin is 11.5. The patient being closely monitored. Gastroenterology evaluation. Monitored. The patient is transferred to ICU overnight. PAST MEDICAL HISTORY: Reviewed. REVIEW OF SYSTEMS: Cardiovascular: No angina or palpitations. Respiration as mentioned earlier. GI : As mentioned earlier. : As mentioned earlier. Central nervous system: No numbness or weakness. CURRENT MEDICATIONS ARE: Reviewed and include: 1. Tylenol 500 mg q.6h p.r.n. 2. [place] 5 mg q.6h p.r.n. 3. Xanax 0.25 t.i.d. 4. Lasix 20 mg p.o. daily. 5. Melatonin 3 mg q.h.s. 6. Replacement protocols. 7. Protonix 40 mg daily. PHYSICAL EXAMINATION: Alert, oriented x3. Pulse 71. Blood pressure 120/74, respiration 20, temperature 97.2, pulse ox 98 percent on room air. HEENT: Conjunctivae pale. Neck is no jugular venous distention. No lymph node enlargement. No carotid bruit. Cardiovascular: S1, S2 muffled. Respirations: Breath sounds diminished in the bases. Scattered rhonchi and crackles. ABDOMEN: Soft, nontender. No mass palpable. Legs: No edema. No swelling. NERVOUS SYSTEM: Higher functions as mentioned. Moves all four extremities. No focal deficits. Lymphatics: No lymph nodes palpable in the neck, axillae or groin. Skin: No ulcer, rash or bleeding. LABS: WBC 6.3, hemoglobin 11.3. ASSESSMENT: 1. Acute gastrointestinal bleed, possibly lower, versus upper with acute blood loss anemia. Rule out peptic ulcer disease. 2. History of coronary artery disease, coronary artery bypass grafting. 3. Diabetes mellitus type 2. 4. History of x2. 5. Remote history of nicotine dependence. 6. Obesity with body mass index of 35.3. 7. Status post TAVR. RECOMMENDATIONS AND DISCUSSION: Recommend to continue current medications. Continue symptomatic treatment. A 2D echo with Doppler was recommended by Cardiology showed ejection fraction about 55-60 percent in the TAVR procedure. Otherwise hold antiplatelet agents currently and monitor hemoglobin closely q.6h and transfuse hemoglobin less than 7. Otherwise, gastroenterology consultation. Possible endoscopies. Further recommendations to follow. Prognosis guarded because of multiple complex medical issues. Discussed at length with the family who understands and agrees. Further recommendations to follow. MMODL / IJN: [id number] / MARYJANE
[2018-05-10 20:01] LABS: Glucose,Whole Blood 166 mg/dL (75-99)
[2018-05-10] MEDS: MELATONIN 3 MG TABLET PO SCH (20:18)
[2018-05-10] MEDS: ACETAMINOPHEN TAB 500 MG TAB PO PRN (20:36)
[2018-05-10 20:44] LABS: Basophils % (A) 1 %; Eosinophils # (A) 0.1 k/uL (0-0.7); Eosinophils % (A) 3 %; HCT 36.3 % (39.0-53.0); HGB 11.6 gm/dL (13.0-17.5); Hypochromasia Slight; Lymphocytes # (A) 1.3 k/uL (1.0-4.8); Lymphocytes % (A) 24 %; MCH 31.1 pg (25.0-35.0); MCHC 31.9 g/dL (31.0-37.0); MCV 97.4 fL (80.0-100.0); Mean Platelet Volume 7.7; Monocytes # (A) 0.4 k/uL (0-1.0); Monocytes % (A) 7 %; Neutrophils # (A) 3.4 k/uL (1.3-7.7); Neutrophils % (A) 64 %; Platelet Count 136 k/uL (150-450); RBC 3.72 m/uL (4.30-5.90); RDW 13.3 % (11.5-15.5); WBC 5.3 k/uL (3.8-10.6)
[2018-05-11] MEDS: SODIUM CHLORIDE 0.9% 1,000 ML IV SCH ×3 (00:24→15:20)
[2018-05-11 03:25] LABS: HCT 36.2 % (39.0-53.0); HGB 11.2 gm/dL (13.0-17.5); Hypochromasia Slight; MCH 30.7 pg (25.0-35.0); MCHC 30.9 g/dL (31.0-37.0); MCV 99.5 fL (80.0-100.0); Mean Platelet Volume 7.6; Platelet Count 135 k/uL (150-450); RBC 3.64 m/uL (4.30-5.90); RDW 13.4 % (11.5-15.5); WBC 5.6 k/uL (3.8-10.6)
[2018-05-11 07:07] LABS: Glucose,Whole Blood 190 mg/dL (75-99)
[2018-05-11] MEDS: FUROSEMIDE 20 MG TAB PO SCH ×2 (08:13→20:24)
[2018-05-11] MEDS: INSULIN ASPART 100 UNIT/ML 1 ML 10 ML VIAL SQ SCH ×4 (08:13→20:24)
[2018-05-11] MEDS: PANTOPRAZOLE 40 MG/10 ML VIAL IVP SCH (08:13)
[2018-05-11 08:36] LABS: Basophils % (A) 1 %; Eosinophils # (A) 0.1 k/uL (0-0.7); Eosinophils % (A) 2 %; HCT 36.6 % (39.0-53.0); HGB 11.2 gm/dL (13.0-17.5); Hypochromasia Slight; Lymphocytes # (A) 1.2 k/uL (1.0-4.8); Lymphocytes % (A) 25 %; MCH 30.2 pg (25.0-35.0); MCHC 30.5 g/dL (31.0-37.0); MCV 98.9 fL (80.0-100.0); Mean Platelet Volume 7.5; Monocytes # (A) 0.3 k/uL (0-1.0); Monocytes % (A) 7 %; Neutrophils # (A) 2.9 k/uL (1.3-7.7); Neutrophils % (A) 63 %; Platelet Count 143 k/uL (150-450); RDW 13.5 % (11.5-15.5); WBC 4.6 k/uL (3.8-10.6)
[2018-05-11 08:45] LABS: Anion Gap 6 mmol/L; Blood Urea Nitrogen 15 mg/dL (9-20); Carbon Dioxide 30 mmol/L (22-30); Chloride 102 mmol/L (98-107); Glucose 234 mg/dL (74-99); Potassium 4.4 mmol/L (3.5-5.1); Sodium 138 mmol/L (137-145)
--- NOTE | 2018-05-11 09:36 | P.PN ---
<Melisa Miles - Last Filed: 05/11/18 09:31> Subjective Progress Note Date: 05/11/18 Principal diagnosis: GI bleed No further bloody bowel movements since yesterday. Bowel movement this morning with remnants of old blood. Denies abdominal pain. Tolerating clear liquids. Hemoglobin 11.2 earlier this morning. Afebrile. Objective - Vital Signs Vital signs: Vital Signs Temp 98.4 F 05/11/18 06:15 Pulse 78 05/11/18 06:15 Resp 16 05/11/18 06:15 BP 113/53 05/11/18 06:15 Pulse Ox 92 L 05/11/18 06:15 Intake & Output 05/10/18 05/11/18 05/11/18 18:59 06:59 18:59 Intake Total 375 Output Total 640 Balance -265 Intake: IV 375 Sodium Chloride 0.9% 1, 375 000 ml @ 75 mls/hr IV . [id number] ONE Rx#:[id number] Output: Urine 640 Other: Voiding Method Toilet Toilet # Voids 0 # Bowel Movements 1 - Exam General appearance: The patient is alert, oriented, in no acute distress. HET: Head is normocephalic and atraumatic. Pupils are equal and reactive. Oropharynx is clear without lesions. Neck: Supple without lymphadenopathy. Trachea midline. Heart: S1 S2. Regular rate and rhythm. Lungs: No crackles or wheezes are heard. Abdomen: Soft, nontender, nondistended with bowel sounds. No peritoneal signs. No palpable organomegaly or masses. Extremities: Normal skin color and turgor. No cyanosis, rash, ulceration, clubbing, or edema. Radial and pedal pulses are 2/4 bilaterally. Neurological: No focal deficits. Strength and sensation are grossly intact. - Labs CBC & Chem 7: 05/11/18 08:00 05/11/18 08:00 Labs: Abnormal Lab Results - Last 24 Hours (Table) 05/10/18 05/10/18 05/10/18 Range/Units 11:49 13:31 16:17 RBC 3.96 L (4.30-5.90) m/uL Hgb 12.3 L (13.0-17.5) gm/dL Hct (39.0-53.0) % MCHC (31.0-37.0) g/dL Plt Count 142 L (150-450) k/uL POC Glucose (mg/dL) 170 H 186 H (75-99) mg/dL 05/10/18 05/10/18 05/11/18 Range/Units 20:00 20:06 03:13 RBC 3.72 L 3.64 L (4.30-5.90) m/uL Hgb 11.6 L 11.2 L (13.0-17.5) gm/dL Hct 36.3 L 36.2 L (39.0-53.0) % MCHC 30.9 L (31.0-37.0) g/dL Plt Count 136 L 135 L (150-450) k/uL POC Glucose (mg/dL) 166 H (75-99) mg/dL 05/11/18 Range/Units 07:05 RBC (4.30-5.90) m/uL Hgb (13.0-17.5) gm/dL Hct (39.0-53.0) % MCHC (31.0-37.0) g/dL Plt Count (150-450) k/uL POC Glucose (mg/dL) 190 H (75-99) mg/dL Assessment and Plan (1) Gastrointestinal hemorrhage Narrative/Plan: Suspicious for acute colonic diverticular bleed however underlying stercoral ulcer possible neoplasm could not be excluded. Bleeding seems to have subsided passed nonbloody bowel movement this morning with remnants of old blood. Current Visit: Yes Status: Acute Code(s): K92.2 - GASTROINTESTINAL HEMORRHAGE, UNSPECIFIED SNOMED Code(s): 25435742 (2) Anemia due to blood loss, acute Current Visit: Yes Status: Acute Code(s): D62 - ACUTE POSTHEMORRHAGIC ANEMIA SNOMED Code(s): 502900611 Plan: 1. Continue clear liquids. Will proceed with colonoscopy in am. NPO after midnight. 2. CBC monitoring. The health program analyst has discussed the risks, benefits and alternative therapies for the above-mentioned procedure and for both sedation/analgesia as well as necessary blood product administration, if indicated, as they pertain to this patient. The patient has indicated understanding and acceptance of the risks and procedures discussed. Assessment and plan a care discussed with Dr. Manriquez <Luis Manriquez - Last Filed: 05/11/18 10:30> Objective - Vital Signs Vital signs: Vital Signs Temp 98.4 F 05/11/18 06:15 Pulse 78 05/11/18 06:15 Resp 16 05/11/18 06:15 BP 113/53 05/11/18 06:15 Pulse Ox 92 L 05/11/18 06:15 Intake & Output 05/10/18 05/11/18 05/11/18 18:59 06:59 18:59 Intake Total 375 Output Total 640 Balance -265 Intake: IV 375 Sodium Chloride 0.9% 1, 375 000 ml @ 75 mls/hr IV . [id number] ONE Rx#:[id number] Output: Urine 640 Other: Voiding Method Toilet Toilet Toilet # Voids 0 # Bowel Movements 1 - Labs CBC & Chem 7: 05/11/18 08:00 05/11/18 08:00 Labs: Abnormal Lab Results - Last 24 Hours (Table) 05/10/18 05/10/18 05/10/18 Range/Units 11:49 13:31 16:17 RBC 3.96 L (4.30-5.90) m/uL Hgb 12.3 L (13.0-17.5) gm/dL Hct (39.0-53.0) % MCHC (31.0-37.0) g/dL Plt Count 142 L (150-450) k/uL Glucose (74-99) mg/dL POC Glucose (mg/dL) 170 H 186 H (75-99) mg/dL 05/10/18 05/10/18 05/11/18 Range/Units 20:00 20:06 03:13 RBC 3.72 L 3.64 L (4.30-5.90) m/uL Hgb 11.6 L 11.2 L (13.0-17.5) gm/dL Hct 36.3 L 36.2 L (39.0-53.0) % MCHC 30.9 L (31.0-37.0) g/dL Plt Count 136 L 135 L (150-450) k/uL Glucose (74-99) mg/dL POC Glucose (mg/dL) 166 H (75-99) mg/dL 05/11/18 05/11/18 05/11/18 Range/Units 07:05 08:00 08:00 RBC 3.70 L (4.30-5.90) m/uL Hgb 11.2 L (13.0-17.5) gm/dL Hct 36.6 L (39.0-53.0) % MCHC 30.5 L (31.0-37.0) g/dL Plt Count 143 L (150-450) k/uL Glucose 234 H (74-99) mg/dL POC Glucose (mg/dL) 190 H (75-99) mg/dL Assessment and Plan (1) Gastrointestinal hemorrhage Current Visit: Yes Status: Acute Code(s): K92.2 - GASTROINTESTINAL HEMORRHAGE, UNSPECIFIED SNOMED Code(s): 50820485 (2) Anemia due to blood loss, acute Current Visit: Yes Status: Acute Code(s): D62 - ACUTE POSTHEMORRHAGIC ANEMIA SNOMED Code(s): 924023932 Plan: The patient has been seen and evaluated, and the plan of care discussed. I agree with the above recommendations and assessment and plan.
[2018-05-11 11:04] LABS: Glucose,Whole Blood 190 mg/dL (75-99)
[2018-05-11] MEDS ORDERED: BISACODYL 5 MG TABLET.DR PO ONE (13:00)
--- NOTE | 2018-05-11 14:28 | P.PN ---
Subjective Progress Note Date: 05/11/18 Principal diagnosis: GI bleed This 77-year-old male patient has been taken Motrin for headache and he is also been an Plavix for his previous history of cardiac disease and the patient has undergone previous bypass surgery and previous aortic valve replacement, transcutaneous, TAVR. He has never had any previous colonoscopy or EGD. He comes into the hospital because of episodes of bright red blood and he can recall 3 of these episodes. He apparently was having some tarry stools earlier which may be potentially melanotic. No hematemesis. No nausea or vomiting. No abdominal pain. No diarrhea. No coagulopathy. No alcoholism. His hemoglobin has dropped from 14.1 down to 11.5. He remains hemodynamic is stable. Liver function tests are within normal limits. No previous history of gastric disease or ulcer. No reflux. Patient is seen today 05/11/2018 in follow-up on the regular medical floor. He is awake and alert in no acute distress. He has no pulmonary complaints. Maintaining O2 saturations in the 90s on room air. He's been afebrile. No further bloody bowel movements since yesterday. No abdominal discomfort. Current hemoglobin 11.2. Objective - Vital Signs Vital signs: Vital Signs Temp 98.4 F 05/11/18 06:15 Pulse 78 05/11/18 06:15 Resp 16 05/11/18 06:15 BP 113/53 05/11/18 06:15 Pulse Ox 92 L 05/11/18 06:15 Intake & Output 05/10/18 05/11/18 05/11/18 18:59 06:59 18:59 Intake Total 375 Output Total 640 300 Balance -265 -300 Weight 117.934 kg Intake: IV 375 Sodium Chloride 0.9% 1, 375 000 ml @ 75 mls/hr IV . [id number] ONE Rx#:[id number] Output: Urine 640 300 Other: Voiding Method Toilet Toilet Toilet # Voids 0 0 # Bowel Movements 1 - Exam Gen. appearance, comfortable likely distress Head exam was generally normal. There was no scleral icterus or corneal arcus. Mucous membranes were moist. Neck was supple and without jugular venous distension, thyromegaly, or carotid bruits. Carotids were easily palpable bilaterally. There was no adenopathy. Lungs were clear to auscultation and percussion, and with normal diaphragmatic excursion. No wheezes or rales were noted. Heart sounds are regular the patient has a stable sternum. No significant murmurs appreciated. Abdominal exam revealed normal bowel sounds. The abdomen was soft, non-tender, and without masses, organomegaly, or appreciable enlargement of the abdominal aorta. Examination of the extremities revealed easily palpable radial, femoral and pedal pulses. There was no cyanosis, clubbing or edema. Examination of the skin revealed no evidence of significant rashes, suspicious appearing nevi or other concerning lesions. Neurologic the patient is awake and alert there is no focal neurological deficit - Labs CBC & Chem 7: 05/11/18 08:00 05/11/18 08:00 Labs: Abnormal Lab Results - Last 24 Hours (Table) 05/10/18 05/10/18 05/10/18 Range/Units 16:17 20:00 20:06 RBC 3.72 L (4.30-5.90) m/uL Hgb 11.6 L (13.0-17.5) gm/dL Hct 36.3 L (39.0-53.0) % MCHC (31.0-37.0) g/dL Plt Count 136 L (150-450) k/uL Glucose (74-99) mg/dL POC Glucose (mg/dL) 186 H 166 H (75-99) mg/dL 05/11/18 05/11/18 05/11/18 Range/Units 03:13 07:05 08:00 RBC 3.64 L 3.70 L (4.30-5.90) m/uL Hgb 11.2 L 11.2 L (13.0-17.5) gm/dL Hct 36.2 L 36.6 L (39.0-53.0) % MCHC 30.9 L 30.5 L (31.0-37.0) g/dL Plt Count 135 L 143 L (150-450) k/uL Glucose (74-99) mg/dL POC Glucose (mg/dL) 190 H (75-99) mg/dL 05/11/18 05/11/18 Range/Units 08:00 11:02 RBC (4.30-5.90) m/uL Hgb (13.0-17.5) gm/dL Hct (39.0-53.0) % MCHC (31.0-37.0) g/dL Plt Count (150-450) k/uL Glucose 234 H (74-99) mg/dL POC Glucose (mg/dL) 190 H (75-99) mg/dL Assessment and Plan Assessment: Assessment 1 acute GI bleeding the exact source is not clear to me at this point in time. Although there is a suspicion for diverticular bleed, the patient is reporting also dark melanotic stool and the upper source of GI bleed cannot be completely excluded 2 anemia mild, secondary to GI related blood loss and ecchymosis hemoglobin is 11.2 and the patient is hemodynamically stable 3 coronary artery disease 4 aortic valve replacement 5 obesity with a BMI of 35.3 6 diabetes mellitus 7 obstructive sleep apnea 8 prostate cancer 9 remote history of rheumatic fever Plan The patient was seen and evaluated by Dr. Savage. He is currently stable from the pulmonary and critical care standpoint. We'll follow on as-needed basis. I, the cosigning physician, performed a history & physical examination of the patient. Lungs sounds are clear. Maintaining good O2 saturations in the 90s on room air. I discussed the assessment and plan of care with my nurse practitioner, Nikki Hernandez. I attest to the above note as dictated by her.
[2018-05-11] MEDS ORDERED: PEG 3350-NA SULF,BICARB,CL/KCL 4,000 ML BOTTLE PO ONE (15:00)
--- NOTE | 2018-05-11 16:41 | PN ---
PROGRESS NOTE DATE OF SERVICE: 05/11/2018 This 77-year-old gentleman admitted with GI bleed is scheduled for colonoscopy by Gastroenterology. No chest pain. No palpitations. No fever. PHYSICAL EXAM: Alert and oriented x3. The pulse is 78, blood pressure 113/50, respirations 16, temperature 98.4, pulse ox 98 percent on room air. HEENT: Conjunctivae pale. Oral mucosa moist. Neck is no jugular venous distention. No carotid bruit. No lymph node enlargement. Cardiovascular: S1, S2 muffled. RESPIRATORY: Breath sounds diminished in the bases. A few scattered rhonchi. No crackles. ABDOMEN: Soft, nontender. No mass palpable. Obese. Legs: No edema. No swelling. Central nervous system: No focal deficits. LABORATORY DATA: 4.2, hemoglobin 11.2, glucose 234. ASSESSMENT: 1. Acute gastrointestinal bleed, possibly upper gastrointestinal bleed with acute blood loss anemia. Rule out peptic ulcer disease. 2. History of coronary artery disease, coronary artery bypass grafting. 3. Diabetes mellitus type 2. 4. History of aortic valve repair x2. 5. Remote history of nicotine dependence. 6. Obesity with body mass index of 34.3. 7. History of TAVR. RECOMMENDATIONS AND DISCUSSION: Recommend to continue current management, symptomatic treatment. Hold off antiplatelet agents. Otherwise closely monitor with Gastroenterology and possible endoscopes. Guarded prognosis. Further recommendations to follow. MMSANTOSHL / KWAMEN: [id number] /
[2018-05-11 16:58] LABS: Glucose,Whole Blood 173 mg/dL (75-99)
[2018-05-11 19:59] LABS: Glucose,Whole Blood 269 mg/dL (75-99)
[2018-05-11] MEDS: MELATONIN 3 MG TABLET PO SCH (20:24)
[2018-05-11 20:45] LABS: HCT 36.3 % (39.0-53.0); HGB 11.8 gm/dL (13.0-17.5); Hypochromasia Slight; MCH 31.6 pg (25.0-35.0); MCHC 32.4 g/dL (31.0-37.0); MCV 97.5 fL (80.0-100.0); Mean Platelet Volume 8.1; Platelet Count 144 k/uL (150-450); RBC 3.72 m/uL (4.30-5.90); RDW 13.4 % (11.5-15.5); WBC 5.7 k/uL (3.8-10.6)
[2018-05-11] MEDS: ACETAMINOPHEN TAB 500 MG TAB PO PRN (22:43)
[2018-05-12 07:35] LABS: Basophils % (A) 1 %; Eosinophils # (A) 0.1 k/uL (0-0.7); Eosinophils % (A) 4 %; HCT 33.1 % (39.0-53.0); HGB 10.5 gm/dL (13.0-17.5); Hypochromasia Slight; Lymphocytes # (A) 1.1 k/uL (1.0-4.8); Lymphocytes % (A) 31 %; MCH 30.8 pg (25.0-35.0); MCHC 31.7 g/dL (31.0-37.0); MCV 97.2 fL (80.0-100.0); Mean Platelet Volume 8.7; Monocytes # (A) 0.3 k/uL (0-1.0); Monocytes % (A) 8 %; Neutrophils % (A) 54 %; Platelet Count 137 k/uL (150-450); RDW 13.4 % (11.5-15.5); WBC 3.7 k/uL (3.8-10.6)
[2018-05-12] MEDS: INSULIN ASPART 100 UNIT/ML 1 ML 10 ML VIAL SQ SCH ×4 (07:45→20:43)
[2018-05-12 07:47] LABS: Anion Gap 5 mmol/L; Blood Urea Nitrogen 11 mg/dL (9-20); Calcium 8.8 mg/dL (8.4-10.2); Carbon Dioxide 31 mmol/L (22-30); Chloride 103 mmol/L (98-107); Glucose 187 mg/dL (74-99); Sodium 139 mmol/L (137-145)
[2018-05-12] MEDS: PANTOPRAZOLE 40 MG/10 ML VIAL IVP SCH (07:48)
[2018-05-12 07:56] LABS: Glucose,Whole Blood 209 mg/dL (75-99)
[2018-05-12] MEDS ORDERED: PHENYLEPHRINE-0.9% NACL SYG 1 MG/10 ML SYRINGE ONE (07:59)
[2018-05-12] MEDS ORDERED: LIDOCAINE 1% INJ 10MG/ML (20 ML MDV) ONE (07:59)
[2018-05-12] MEDS ORDERED: PROPOFOL 10 MG/ML 20 ML VIAL IV ONE (07:59)
[2018-05-12] MEDS ORDERED: IV FLUID CONTINUATION 800 ML IV ONE (08:00)
--- NOTE | 2018-05-12 08:54 | P.PCN ---
Date of Procedure: 05/12/18 Description of Procedure: BRIEF HISTORY: Patient is a 77-year-old pleasant male with a known history of coronary artery disease on Plavix therapy presents to the hospital with reports of multiple episodes of bright red blood per rectum. The patient denies any previous history and reports her last colonoscopy was over 10 years ago. Patient was found to have associated fall in his hemoglobin and scheduled for colonoscopic evaluation. PROCEDURE PERFORMED: Colonoscopy. PREOPERATIVE DIAGNOSIS: Hematochezia, anemia. IV sedation per Anesthesia. PROCEDURE: After informed consent was obtained, the patient, was brought into the endoscopy unit. IV sedation was administered by Anesthesia under continuous monitoring. Digital rectal examination was normal. Initially the Olympus CF-10 flexible video colonoscope was then inserted in the rectum, gradually advanced into the cecum without any difficulty. Careful examination was performed as the scope was gradually being withdrawn. Ileocecal valve and the appendiceal orifice were visualized and appeared normal. Prep was fair with liquid and semisolid stool found throughout the colon, copious lavage was used to try and clear the stool. Mucosa of the cecum, ascending colon, transverse colon, descending colon, sigmoid colon, and rectum appeared grossly normal with moderate amounts of small and large diverticular disease found in the sigmoid and descending colon. A 5 mm flat polyp was found in the ascending colon which was removed with cold snare and retrieved. Retroflexion was performed in the rectum and no lesions were seen. The patient tolerated the procedure well. IMPRESSION: No evidence of active bleeding, or old blood seen throughout the colon. 5 mm ascending colonic polyp removed with cold snare. Diverticulosis in the sigmoid and descending colon. Internal hemorrhoids seen on retroflexion. RECOMMENDATIONS: Findings of this examination were discussed with the patient and his family. At this time patient will be started on a low fiber cardiac diet. No further endoscopic evaluation needed in the inpatient setting at this time. Okay to restart antiplatelet therapy with Plavix tomorrow. Monitor hemoglobin and hematocrit. Patient has further bleeding consider upper endoscopy. Patient's fair prep would recommend colonoscopy in 3 years or earlier if signs or symptoms warrant.
[2018-05-12] MEDS: FUROSEMIDE 20 MG TAB PO SCH ×2 (10:20→17:35)
--- NOTE | 2018-05-12 11:33 | P.PN ---
Subjective Progress Note Date: 05/12/18 Principal diagnosis: GI Bleed Mr. Aguilar is a 77-year-old male admitted with GI bleed who had his colonoscopy done this morning lying comfortably in the bed after the procedure. Review of systems Patient denies having any fever chills or rigors. No complaints of chest pain or palpitations. No cough or difficulty in breathing. Patient's last bowel movement was this morning which was having dark blood. Patient denies having any abdominal pain nausea vomiting. Objective - Vital Signs Vital signs: Vital Signs Temp 97.9 F 05/12/18 09:00 Pulse 78 05/12/18 09:24 Resp 18 05/12/18 09:24 BP 133/75 05/12/18 09:24 Pulse Ox 96 05/12/18 09:24 Intake & Output 05/11/18 05/12/18 05/12/18 18:59 06:59 18:59 Intake Total 3400 300 Output Total 300 Balance -300 3400 300 Weight 117.934 kg 117.934 kg Intake: IV 300 Intake, IV Titration 900 Amount Sodium Chloride 0.9% 1, 900 000 ml @ 75 mls/hr IV . [id number] LEONEL Rx#:[id number] Oral 2500 Output: Urine 300 Other: Voiding Method Toilet Toilet # Voids 0 5 1 # Bowel Movements 2 4 1 - Exam Physical exam GEN. APPEARANCE: alert, in no apparent distress HEAD EXAM: atraumatic, normocephalic, normal inspection EYE EXAM: normal appearance, PERRL, EOMI. Absent: scleral icterus, conjunctival injection, periorbital swelling ENT EXAM: normal exam, mucous membranes moist NECK EXAM: normal inspection. Absent: tenderness, meningismus, full ROM, lymphadenopathy RESPIRATORY EXAM: normal lung sounds bilaterally. Absent: respiratory distress , wheezes, rales, rhonchi, stridor CARDIOVASCULAR EXAM: regular rate, normal rhythm, normal heart sounds. Absent : systolic murmur, diastolic murmur, rubs, gallop, clicks GI/ABDOMINAL EXAM: soft, normal bowel sounds. Absent: distended, tenderness, guarding, rebound, rigid EXTREMITIES EXAM: No edema NEUROLOGICAL EXAM: alert, oriented X3, no focal deficits PSYCHIATRIC EXAM: normal affect, normal mood SKIN EXAM: warm, dry, intact, normal color. Absent: rash - Labs CBC & Chem 7: 05/12/18 07:17 05/12/18 07:17 Labs: Abnormal Lab Results - Last 24 Hours (Table) 05/11/18 05/11/18 05/11/18 Range/Units 16:55 19:57 20:15 WBC (3.8-10.6) k/uL RBC 3.72 L (4.30-5.90) m/uL Hgb 11.8 L (13.0-17.5) gm/dL Hct 36.3 L (39.0-53.0) % Plt Count 144 L (150-450) k/uL Carbon Dioxide (22-30) mmol/L Glucose (74-99) mg/dL POC Glucose (mg/dL) 173 H 269 H (75-99) mg/dL 05/12/18 05/12/18 05/12/18 Range/Units 07:17 07:17 07:45 WBC 3.7 L (3.8-10.6) k/uL RBC 3.40 L (4.30-5.90) m/uL Hgb 10.5 L (13.0-17.5) gm/dL Hct 33.1 L (39.0-53.0) % Plt Count 137 L (150-450) k/uL Carbon Dioxide 31 H (22-30) mmol/L Glucose 187 H (74-99) mg/dL POC Glucose (mg/dL) 209 H (75-99) mg/dL Assessment and Plan Assessment: ASSESSMENT Acute GI bleed Anemia secondary to #1 History of coronary artery disease status post CABG Diabetes mellitus type 2 History of aortic wall repair 2 Nicotine dependence Obesity with BMI of 34.3 Plan: Patient had a colonoscopy done this morning showing a small polyp, awaiting complete report. Last bowel movement this morning was dark in color. Continue with the rest of the medical management. Further recommendations to follow depending on the progress of the patient. We'll check with GI when we can resume the antiplatelet therapy for him.
[2018-05-12 12:28] LABS: Glucose,Whole Blood 228 mg/dL (75-99)
[2018-05-12] MEDS: SODIUM CHLORIDE 0.9% 1,000 ML IV SCH (16:15)
[2018-05-12 17:22] LABS: Glucose,Whole Blood 209 mg/dL (75-99)
[2018-05-12 17:46] LABS: Hemoglobin A1C 8.9 % (4.0-6.0)
[2018-05-12 20:33] LABS: Glucose,Whole Blood 241 mg/dL (75-99)
[2018-05-12] MEDS: MELATONIN 3 MG TABLET PO SCH (20:43)
[2018-05-13 05:53] VITALS: BP 120/65; PULSE 79; RESP 17; TEMP 98.1
[2018-05-13] MEDS: SODIUM CHLORIDE 0.9% 1,000 ML IV SCH (07:09)
[2018-05-13 07:28] LABS: Glucose,Whole Blood 210 mg/dL (75-99)
[2018-05-13] MEDS: FUROSEMIDE 20 MG TAB PO SCH (07:45)
[2018-05-13] MEDS: PANTOPRAZOLE 40 MG/10 ML VIAL IVP SCH (07:45)
[2018-05-13] MEDS: INSULIN ASPART 100 UNIT/ML 1 ML 10 ML VIAL SQ SCH ×2 (07:45→12:37)
[2018-05-13 08:36] LABS: Basophils % (A) 1 %; Eosinophils # (A) 0.1 k/uL (0-0.7); Eosinophils % (A) 2 %; HCT 33.8 % (39.0-53.0); HGB 10.7 gm/dL (13.0-17.5); Hypochromasia Slight; Lymphocytes # (A) 1.2 k/uL (1.0-4.8); Lymphocytes % (A) 27 %; MCH 30.9 pg (25.0-35.0); MCHC 31.5 g/dL (31.0-37.0); MCV 98.1 fL (80.0-100.0); Mean Platelet Volume 8.1; Monocytes # (A) 0.3 k/uL (0-1.0); Monocytes % (A) 7 %; Neutrophils # (A) 2.7 k/uL (1.3-7.7); Neutrophils % (A) 60 %; Platelet Count 143 k/uL (150-450); RBC 3.45 m/uL (4.30-5.90); RDW 13.5 % (11.5-15.5); WBC 4.4 k/uL (3.8-10.6)
[2018-05-13 08:50] LABS: Anion Gap 8 mmol/L; Blood Urea Nitrogen 10 mg/dL (9-20); Calcium 8.9 mg/dL (8.4-10.2); Carbon Dioxide 30 mmol/L (22-30); Chloride 100 mmol/L (98-107); Glucose 200 mg/dL (74-99); Sodium 138 mmol/L (137-145)
[2018-05-13] MEDS ORDERED: DOCUSATE 100 MG CAP PO PRN (10:53)
[2018-05-13 12:04] LABS: Glucose,Whole Blood 210 mg/dL (75-99)
--- NOTE | 2018-05-13 12:28 | P.DS ---
Providers Date of admission: 05/09/18 15:45 Expected date of discharge: 05/13/18 Attending physician: Mayuri Martinez Consults: 05/09/18 15:45 Consult Physician Urgent Consulting Provider: Gilbert Castro Consult Reason/Comments: GI bleed Do you want consulting provider notified?: Yes 05/09/18 22:49 Consult Physician Routine Consulting Provider: Ltous Guy Consult Reason/Comments: cad Do you want consulting provider notified?: Yes 05/09/18 23:45 Consult Physician Urgent Consulting Provider: Marina Savage Consult Reason/Comments: ICU Do you want consulting provider notified?: Yes Primary care physician: [facility] Course: Mr. Aguilar is a 77-year-old male with a past medical history of diabetes mellitus, prostate disorder, coronary artery disease status post CABG admitted to the hospital with a chief complaint of bright red blood per rectum. Patient has been taking Motrin and Aleve for his headaches on and off and he is also on Plavix for his history of coronary artery disease. Patient was admitted with a hemoglobin of 12.1 and at the time of discharge the hemoglobin is at 10.7 he did not receive any blood transfusions. GI has been consulted and the patient had a colonoscopy done which was showing no active bleeding but a small polyp was removed. After the procedure patient had a bowel movement that was dark in color but no bright red blood. GI suggested that he can be restarted on Plavix today. Patient states that he is back to his baseline and wants to go home. On physical examination, patient appears comfortable in no apparent distress. HEENT: Unremarkable. Conjunctivae pink. Sclerae anicteric.No conjunctival injection. Oral cavity no lesions. NECK: Trachea midline, no gross abnormalities. CHEST: Clear to auscultation. HEART: Regular rate and rhythm. ABDOMEN: Soft, obese. Bowel sounds are positive. No organomegaly. EXTREMITIES: No pedal edema. SKIN: No rashes. NEUROLOGIC: Alert and oriented x3. No focal deficits. Discharge diagnosis Acute blood loss anemia Acute lower GI bleed History of coronary artery disease status post CABG Diabetes mellitus type 2 History of aortic wall repair 2 Nicotine dependence Obesity with BMI of 34.3 is being discharged home in a stable condition hemoglobin is stable at 10.7 today. Advised to follow-up with his acute physician in 3-5 days. Plan - Discharge Summary Discharge Rx Participant: Yes New Discharge Prescriptions: Continue Turmeric Root Extract [Turmeric] 500 mg PO DAILY Potassium 99 mg PO DAILY Clopidogrel [Plavix] 75 mg PO DAILY Calcium/Magnesium 1 tab PO DAILY metFORMIN HCL [Glucophage] 1,000 mg PO BID Enzalutamide [Xtandi] 120 mg PO DIRECTED MDD on hold Furosemide [Lasix] 20 mg PO BID Insulin Glargine [Lantus] 25 unit SQ BID Discontinued Ibuprofen [Motrin Ib] 400 mg PO BID Discharge Medication List Calcium/Magnesium 1 tab PO DAILY 05/09/18 [History] Clopidogrel [Plavix] 75 mg PO DAILY 05/09/18 [History] Enzalutamide [Xtandi] 120 mg PO DIRECTED MDD on hold 05/09/18 [History] Furosemide [Lasix] 20 mg PO BID 05/09/18 [History] Insulin Glargine [Lantus] 25 unit SQ BID 05/09/18 [History] Potassium 99 mg PO DAILY 05/09/18 [History] Turmeric Root Extract [Turmeric] 500 mg PO DAILY 05/09/18 [History] metFORMIN HCL [Glucophage] 1,000 mg PO BID 05/09/18 [History] Follow up Appointment(s)/Referral(s): [facility], [NON-STAFF] - 1-2 Days Kirk Gold MD [Primary Care Provider] - 1-2 days
== END 2018-05-13 13:15 | disposition home or self-care (01) | DRG 378 ==
LOC: EC 14:13 → 4MS4W 15:45 → 6ICU 05-10 00:34 → 5MS5E 05-10 13:06
PROVIDERS: ADMIT Hospitalist; ATTEND Hospitalist
PROC: 0DBK8ZZ Excision of Ascending Colon, Via Natural or Artificial Opening Endoscopic (ICD-10-PCS; principal; 2018-05-12 08:00)
DX: K57.31 Diverticulosis of large intestine without perforation or abscess with bleeding (principal); D62 Acute posthemorrhagic anemia; D12.2 Benign neoplasm of ascending colon; E11.9 Type 2 diabetes mellitus without complications; E66.9 Obesity, unspecified; E78.5 Hyperlipidemia, unspecified; F17.200 Nicotine dependence, unspecified, uncomplicated; G47.33 Obstructive sleep apnea (adult) (pediatric); I10 Essential (primary) hypertension; I25.10 Atherosclerotic heart disease of native coronary artery without angina pectoris; I49.1 Atrial premature depolarization; K64.8 Other hemorrhoids; Z68.35 Body mass index [BMI] 35.0-35.9, adult; Z79.02 Long term (current) use of antithrombotics/antiplatelets; Z79.4 Long term (current) use of insulin; Z82.49 Family history of ischemic heart disease and other diseases of the circulatory system; Z83.3 Family history of diabetes mellitus; Z85.46 Personal history of malignant neoplasm of prostate; Z95.1 Presence of aortocoronary bypass graft; Z95.2 Presence of prosthetic heart valve; Z79.1 Long term (current) use of non-steroidal anti-inflammatories (NSAID); Z79.899 Other long term (current) drug therapy; Z91.041 Radiographic dye allergy status
CPT/HCPCS: 36415; 45385; 71045; 80048; 80053; 82550; 82553; 83036; 83735; 84153; 84484; 85025; 85027; 85610; 85730; 93005; 93306; 96360; 99285